=== PATIENT | male | born 1940 | race Caucasian/White ===

== ENCOUNTER 2017-01-03 09:06 | Day surgery (SDC) | payer MEDICARE ==
[2017-01-03] MEDS ORDERED: FENTANYL PF 100MCG/2ML VIAL IV ONE (15:45)
[2017-01-03] MEDS ORDERED: PROPOFOL 10 MG/ML VIAL IV ONE (15:45)
[2017-01-03] MEDS ORDERED: LIDOCAINE 2% MDV (20MG/ML) 20ML VIAL IV ONE (15:45)
--- NOTE | 2017-01-05 06:50 | Operative Note ---
DATE OF SURGERY: OPERATION: ESOPHAGOGASTRODUODENOSCOPY with biopsy. PREOPERATIVE DIAGNOSIS: Short-segment Neri's. POSTOPERATIVE DIAGNOSIS: Short-segment Neri's. ESTIMATED BLOOD LOSS: Minimal. SPECIMENS: GE junction. PROCEDURE: After informed consent was obtained from the patient, he was placed in the left lateral decubitus position in the endoscopy suite, sedated and monitored by the department of anesthesia. A well-lubricated [id number] gastroscope was placed in the posterior oropharynx and under direct visualization passed to the proximal esophagus. The endoscope was advanced through the proximal, mid, and distal esophagus. The GE junction demonstrated a proximal migrating tongue of columnar epithelium consistent with prior diagnosis of short-segment Neri's. The remainder of the esophagus and GE junction were unremarkable. The gastric body, antrum, pylorus, duodenal bulb, and sweep were unremarkable. J-turn views of the proximal stomach revealed no abnormalities. The endoscope was straightened, and the GE junction tongue was biopsied. The endoscope was removed from the patient with no new findings noted. RECOMMENDATIONS: The patient should resume his medications and diet. I would recommend a repeat exam in 3 years provided no dysplasia is noted. As always, thank you for allowing me to participate in the healthcare of your patients. Girish Aragon DO CC: Dr. Santa LEES
== END 2017-01-03 10:05 | disposition home or self-care (01) ==
LOC: HOP 09:06
PROVIDERS: ATTEND Internal Medicine Gastroenterology
DX: K22.70 Barrett's esophagus without dysplasia (principal); I10 Essential (primary) hypertension; E78.00 Pure hypercholesterolemia, unspecified
CPT/HCPCS: 43239; 00740; J3010

== ENCOUNTER 2019-02-12 06:57 | Day surgery (SDC) | payer MEDICARE ==
[2019-02-12] MEDS ORDERED: PROPOFOL 10 MG/ML VIAL IV ONE (06:58)
[2019-02-12] MEDS ORDERED: LIDOCAINE 2% MDV (20MG/ML) 20ML VIAL IV ONE (06:58)
--- NOTE | 2019-02-13 08:20 | Operative Note ---
DATE OF SURGERY: 02/12/2019 OPERATION: ESOPHAGOGASTRODUODENOSCOPY with biopsy. PREOPERATIVE DIAGNOSIS: Short-segment Neri's. POSTOPERATIVE DIAGNOSIS: Short-segment Neri's. SPECIMENS: GE junction. ESTIMATED BLOOD LOSS: Minimal. COMPLICATIONS: None apparent. PROCEDURE: After informed consent was obtained from the patient, he was placed in the left lateral decubitus position in the endoscopy suite, sedated and monitored by the department of anesthesia. Once sedated, a well-lubricated [id number] gastroscope was placed in the posterior oropharynx under direct visualization and passed to the proximal esophagus. The endoscope was advanced through the proximal, mid, and distal esophagus. The GE junction demonstrated a proximal migrating columnar tongue consistent with short-segment Neri's. The remainder of the esophagus, gastric body, antrum, pylorus, duodenal bulb and sweep were unremarkable. J-turn views of the proximal stomach were unrevealing. The endoscope was straightened. The Neri's tongue was biopsied multiple times. No excessive bleeding was noted. The endoscope removed from the patient with no new findings noted. RECOMMENDATIONS: The patient is to continue his proton pump inhibitor. If no dysplasia is found, a repeat upper endoscopy in 3 years would be suggested. That is provided the patient's health will allow. As always, thank you for allowing me to participate in the healthcare of your patients. CC: DO YOANA Wagoner
== END 2019-02-12 08:45 | disposition home or self-care (01) ==
LOC: HOP 06:57
PROVIDERS: ATTEND Internal Medicine Gastroenterology
DX: K22.70 Barrett's esophagus without dysplasia (principal); K21.9 Gastro-esophageal reflux disease without esophagitis; I10 Essential (primary) hypertension; E78.00 Pure hypercholesterolemia, unspecified